=== PATIENT | female | born 1975 | race Caucasian/White ===

== ENCOUNTER 2016-09-03 23:24 | Emergency (ER) | payer BC ==
[2016-09-04 00:12] VITALS: TEMP 98
[2016-09-04] MEDS ORDERED: Sodium Chloride 0.9% 1,000 ML IV ONE (00:46)
--- NOTE | 2016-09-04 00:46 | C.PDOC ---
History Of Present Illness Patient presents to the ED complaining of vaginal spotting that started today. Patient is 2 months ; 5, para 4. Patient denies any fever, chills, nausea, vomiting, pelvic pain, or abdominal pain. Time Seen by Provider: 09/04/16 00:46 Chief Complaint (Nursing): Female Genitourinary History Per: Patient History/Exam Limitations: no limitations Onset/Duration Of Symptoms: Hrs (today) Current Symptoms Are (Timing): Still Present Severity: None Pain Scale Rating Of: 0 Quality Of Discomfort: Other Alleviating Factors: None Recent travel outside of the [place]: No Additional History Per: Patient Abnormal Vaginal Bleeding: Yes : 5 Para: 4 Past Medical History Reviewed: Historical Data, Nursing Documentation, Vital Signs Vital Signs: Last Vital Signs Temp 98.0 F 09/04/16 00:08 Pulse 78 09/04/16 00:08 Resp 18 09/04/16 00:08 BP 122/81 09/04/16 00:08 Pulse Ox 98 09/04/16 01:29 Family History: States: Unknown Family Hx - Social History Hx Alcohol Use: No Hx Substance Use: No - Immunization History Hx Tetanus Toxoid Vaccination: No Hx Influenza Vaccination: Yes Hx Pneumococcal Vaccination: Yes Review Of Systems Constitutional: Negative for: Fever, Chills Gastrointestinal: Negative for: Nausea, Vomiting, Abdominal Pain Genitourinary: Positive for: Vaginal Bleeding. Negative for: Pelvic Pain Physical Exam - Physical Exam Appears: Non-toxic, No Acute Distress Skin: Warm, Dry Head: Atraumatic, Normacephalic Eye(s): bilateral: PERRL, EOMI Oral Mucosa: Moist Neck: Supple Chest: Symmetrical Cardiovascular: Rhythm Regular Respiratory: No Rales, No Rhonchi, No Wheezing Gastrointestinal/Abdominal: Soft, No Tenderness, No Guarding, No Rebound Back: No CVA Tenderness Extremity: Bilateral: Atraumatic, Normal Color And Temperature Neurological/Psych: Oriented x3 ED Course And Treatment - Laboratory Results Result Diagrams: 09/04/16 01:18 09/04/16 01:18 O2 Sat by Pulse Oximetry: 98 (RA) Pulse Ox Interpretation: Normal Progress Note: Plan: Labs, IV fluids Reevaluation Time: 04:44 Reassessment Condition: Unchanged Disposition Counseled Patient/Family Regarding: Studies Performed, Diagnosis, Need For Followup - Disposition Referrals: [facility] [Outside] Disposition: HOME/ ROUTINE Disposition Time: 00:46 Condition: FAIR Instructions: Threatened Miscarriage (ED) - Clinical Impression Clinical Impression: demise - Scribe Statement The provider has reviewed the documentation as recorded by the Scribe Gay Frazier Provider Attestation: All medical record entries made by the Scribe were at my direction and personally dictated by me. I have reviewed the chart and agree that the record accurately reflects my personal performance of the history, physical exam, medical decision making, and the department course for this patient. I have also personally directed, reviewed, and agree with the discharge instructions and disposition.
[2016-09-04 01:22] LABS: BASO # 0.1 K/uL (0.0-0.2); BASO % 1.1 % (0.0-2.0); EOS # 0.1 K/uL (0.0-0.7); EOS % 1.5 % (0.0-4.0); HEMATOCRIT 39.5 % (34.0-47.0); LYMPH # 1.2 K/uL (1.0-4.3); LYMPH % 26.3 % (20.0-40.0); MEAN CELL VOLUME 88.9 fL (81.0-99.0); MEAN CORPUSCULAR HEMOGLOBIN 29.4 pg (27.0-31.0); MEAN CORPUSCULAR HGB CONC 33.1 g/dL (33.0-37.0); MEAN PLATELET VOLUME 9.6 fL (7.2-11.7); MONO # 0.5 K/uL (0.0-0.8); MONO % 10.9 % (0.0-10.0); RED CELL DISTRIBUTION WIDTH 14.4 % (11.5-14.5); WHITE BLOOD COUNT 4.6 K/uL (4.8-10.8)
[2016-09-04 01:24] LABS: URINE BILIRUBIN NEGATIVE (NEGATIVE); URINE BLOOD NEGATIVE (NEGATIVE); URINE COLOR Straw (YELLOW); URINE GLUCOSE (UA) NORMAL (Normal); URINE KETONE NEGATIVE (NEGATIVE); URINE LEUKOCYTE ESTERASE NEG Leu/uL (Negative); URINE PROTEIN NEGATIVE (NEGATIVE); URINE UROBILINOGEN NORMAL mg/dL (0.2-1.0); WBC URINE 1 /hpf (0-5)
[2016-09-04 01:36] LABS: CHLORIDE 103 mmol/L (98-107); SODIUM 139 mmol/L (132-148)
[2016-09-04 01:39] LABS: ALB/GLOB RATIO 1.1 (1.0-2.1); ALKALINE PHOSPHATASE 133 U/L (38-126); AST/SGOT 73 U/L (14-36); BILIRUBIN,TOTAL 0.6 mg/dL (0.2-1.3); BLOOD UREA NITROGEN 16 mg/dL (7-17); CALCIUM 8.7 mg/dl (8.6-10.4); CARBON DIOXIDE 23 mmol/L (22-30); GFR AFRICAN-AMERICAN > 60; GLUCOSE,RANDOM 112 mg/dL (65-105); TOTAL PROTEIN 8.5 g/dL (6.3-8.3)
[2016-09-04 01:40] LABS: ALT/SGPT 79 U/L (9-52)
[2016-09-04 05:16] VITALS: BP 110/70; PULSE 80; RESP 14; O2SAT 98
--- NOTE | 2016-09-04 10:44 | US ---
Pelvic ultrasound History: . Vaginal bleeding. Comparison: None available. Technique: Real-time sonography was performed through the pelvis utilizing transabdominal and transvaginal techniques. Findings: Uterus: 11.4 x 4.3 x 6.0 centimeters. Anteverted. An irregularly-shaped intrauterine gestational sac is identified within the uterus measuring 2.7 centimeters corresponding to a gestational age of approximately 7 weeks and 4 days. pole identified within the gestational sac measuring 2.15 centimeters which corresponds to a gestational age of approximately 8 weeks and 6 days. No yolk sac identified. No heart rate was detected. No free fluid in the pelvic cul-de-sac. Right ovary: 2.9 x 1.8 x 2.5 centimeters. Normal flow. Small 5 x 3 x 5 millimeter echogenic focus is incidentally noted within the right ovary. Indeterminate clinical etiology. Left ovary: 3.1 x 2.2 x 2.5 centimeters. Normal flow. 1.3 x 1.3 x 1.5 centimeter involuting corpus luteal cyst is identified within the left ovary. No free fluid in the pelvic cul-de-sac. Impression: Irregularly-shaped single intrauterine gestational sac containing a pole. pole measures 2.15 centimeters corresponding to a gestational age of approximately 8 weeks and 6 days. No heart rate was detected. These findings are concerning for a possible failed 1st trimester / demise. Although considered less likely underlying early intrauterine may be within the differential. Clinical correlation. 1.5 centimeter involuting corpus luteal cyst. 5 millimeter nonspecific echogenic foci noted within the right ovary. Limited 1st trimester ultrasound for viability purposes only. Continued interval followup with serial ultrasound, serial HCG levels, and gynecological consultation would be helpful if clinically indicated. These findings were preliminarily reported at 4:31 a.m. on 09/04/[address] Teena Brandon from [employer].
== END 2016-09-04 05:16 | disposition home or self-care (01) ==
LOC: C.ER 23:24
DX: O02.1 Missed abortion (principal)